=== PATIENT | male | born 1955 | race Caucasian/White ===

== ENCOUNTER 2016-10-26 08:14 | Emergency (ER) | payer OTHER ==
[2016-10-26 08:28] VITALS: RESP 16
[2016-10-26] MEDS ORDERED: HYDROmorphONE/DILAUDID 1 MG/ML SYR IVP ONE (08:32)
[2016-10-26] MEDS ORDERED: NS 1,000 ML IV ONE (08:32)
[2016-10-26] MEDS ORDERED: ONDANSETRON 4 MG/2 ML VIAL IVP ONE (08:32)
--- NOTE | 2016-10-26 08:37 | UCPHY ---
H & P Time Seen by Provider: 10/26/16 08:22 Patient Type: Established HPI/ROS: HPI Abdominal pain. 61-year-old male by private vehicle with his . This patient complains of periumbilical and right lower quadrant abdominal pain described as a burning, bloating and cramping sensation onset at 5:00 p.m. yesterday worsening through the night. He has had associated nausea with some nonbilious, nonbloody vomiting. No diarrhea. No bloody or melenic stool. Last meal was yesterday afternoon. No previous abdominal surgical history. He reports that he has had this pain 3 times over the last 3-4 months. He reports that it has resolved spontaneously each time. He was seen at the emergency department at another hospital for this pain about 1 month ago. He had an ultrasound done at that time which he reports was inconclusive. He has not had CT imaging. ROS: Constitutional: No fever, no chills. No weakness. Eyes: No discharge. No changes in vision. ENT: No sore throat. No nasal congestion or rhinorrhea. Respiratory: No cough. No shortness of breath. Cardiac: No chest pain, no palpitations. Gastrointestinal: As above. Genitourinary: No hematuria. No dysuria or increased frequency with urination. Musculoskeletal: No back pain. No neck pain. No myalgias or arthralgias. Skin: No rashes. Neurological: No headache. No focal weakness or altered sensation. Past medical history: Kidney stones. As above. No medication allergies. Social history: Here with his . Physical Exam: General Appearance: Alert, uncomfortable. This patient is responding to questions appropriately and in full sentences. This patient appears well- hydrated and well-nourished. Eyes: Pupils equal and round no pallor or injection. No lid edema, erythema or injection. Respiratory: There are no retractions, lungs are clear to auscultation with good air movement bilaterally. Cardiovascular: Regular rate and rhythm. No murmur. Gastrointestinal: Abdomen is soft, mildly distended, vague periumbilical and right lower quadrant tenderness on palpation, no masses, bowel sounds normal. No focal tenderness at McBurney's point. No Abarca sign. Neurological: Motor sensory function is grossly intact. Cranial nerves are normal. Gait is normal. Skin: Warm and dry, no rashes. Musculoskeletal: Neck is supple and nontender. Extremities are symmetrical. All joints range without pain or impingement. Psychiatric: No agitation. No depression. Database: EKG: Imaging: CT scan of abdomen and pelvis with IV contrast: In ileitis is seen. There are several loops of ilium with mild thickness of the wall and dilation. No small- bowel obstruction. The appendix is visualized and is normal. No diverticulitis. Diverticula are present. Small amount of free fluid around the liver. There is a 7 mm stone in the bladder. Fatty liver noted. Results discussed with staff radiologist Dr. Rafi Mccullough. Procedures: Emergency department course: IV placed. He was placed on a monitor. He was started on IV normal saline with 1 L to be given over the next hour. He was given 1 mg of IV hydromorphone and 4 mg of IV Zofran. Vital signs have been reviewed and are unremarkable. 9:00 a.m., patient re-evaluated. Pain is well controlled at this time. Patient sent for CT imaging. 9:50 a.m., the patient re-evaluated. Resting comfortably at this time. Pain has resolved completely. Repeat abdominal exam is soft, nontender nondistended. Results of his CT scan and lab work were discussed with him. 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 Need for follow-up through gastroenterology discussed. Plan will be to prescribe him Vicodin, stool softeners and high-dose NSAIDs over the next 3 days with follow-up with Gastroenterology this coming week for further evaluation and management. Patient endorses. Return to emergency department precautions discussed. All of his questions were answered. He was discharged in good condition. Differential Diagnosis: The differential diagnosis on this patient includes but is not limited to appendicitis, epiploic appendagitis, colitis, volvulus/bowel obstruction. This represents a partial list of diagnoses considered. These considerations are based on history, physical exam, past history, reassessment and diagnostic testing. Smoking Status: Never smoked Constitutional: Initial Vital Signs Temperature (C) 36.5 C 10/26/16 08:25 Heart Rate 70 10/26/16 08:25 Respiratory Rate 16 10/26/16 08:25 Blood Pressure 157/93 H 10/26/16 08:25 O2 Sat (%) 96 10/26/16 08:25 O2 Delivery Mode Room Air O2 (L/minute) 2 Allergies/Adverse Reactions: No Known Allergies Allergy (Unverified 10/26/16 08:28) Home Medications: Medication Instructions Recorded Compound Rinse For Canker Sores 10/26/16 Docusate Sodium [Colace 100 MG (*)] 100 mg PO TID #20 cap 10/26/16 Hydrocodone/APAP 5/325 [[place] 1 - 2 tab PO Q4-6PRN PRN #20 tab 10/26/16 5/325 (*)] Ondansetron Odt [Zofran Odt 4 mg 4 mg PO Q4PRN PRN #10 tab 10/26/16 (*)] Medical Decision Making - Data Points Laboratory Results: Laboratory Results 10/26/16 08:40 10/26/16 08:40 10/26/16 08:40 WBC 12.90 H 10^3/uL (3.80-9.50) RBC 6.02 10^6/uL (4.40-6.38) Hgb 17.6 H g/dL (13.7-17.5) Hct 49.9 % (40.0-51.0) MCV 82.9 fL (81.5-99.8) MCH 29.2 pg (27.9-34.1) MCHC 35.3 g/dL (32.4-36.7) RDW 13.3 % (11.5-15.2) Plt Count 294 10^3/uL (150-400) MPV 9.5 fL (8.7-11.7) Neut % (Auto) 85.1 H % (39.3-74.2) Lymph % (Auto) 7.1 L % (15.0-45.0) [place] % (Auto) 7.2 % (4.5-13.0) Eos % (Auto) 0.1 L % (0.6-7.6) Baso % (Auto) 0.2 L % (0.3-1.7) Nucleat RBC Rel Count 0.0 % (0.0-0.2) Absolute Neuts (auto) 10.98 H 10^3/uL (1.70-6.50) Absolute Lymphs (auto) 0.91 L 10^3/uL (1.00-3.00) Absolute Monos (auto) 0.93 H 10^3/uL (0.30-0.80) Absolute Eos (auto) 0.01 L 10^3/uL (0.03-0.40) Absolute Basos (auto) 0.03 10^3/uL (0.02-0.10) Absolute Nucleated RBC 0.00 10^3/uL (0-0.01) Immature Gran % 0.3 % (0.0-1.1) Immature Gran # 0.04 10^3/uL (0.00-0.10) Sodium 141 mEq/L (134-144) Potassium 4.3 mEq/L (3.5-5.2) Chloride 104 mEq/L (97-110) Carbon Dioxide 24 mEq/l (22-31) Anion Gap 13 mEq/L (8-16) BUN 17 mg/dL (7-23) Creatinine 0.9 mg/dL (0.7-1.3) Estimated GFR > 60 Glucose 130 H mg/dL (70-100) Calcium 9.5 mg/dL (8.5-10.4) Total Bilirubin 1.4 mg/dL (0.1-1.4) Conjugated Bilirubin 0.4 mg/dL (0.0-0.5) Unconjugated Bilirubin 1.0 mg/dL (0.0-1.1) AST 20 IU/L (17-59) ALT 35 IU/L (21-72) Alkaline Phosphatase 76 IU/L (38-126) Total Protein 7.5 g/dL (6.3-8.2) Albumin 4.2 g/dL (3.5-5.0) Lipase 368.0 H IU/L (23-300) Medications Given: Discontinued Medications Hydromorphone HCl (Dilaudid) 0.5 mg IVP EDNOW ONE Stop: 10/26/16 08:33 Last Admin: 10/26/16 08:53 Dose: 0.5 mg Sodium Chloride (Ns) 1,000 mls @ 0 mls/hr IV ONCE ONE PRN Reason: Wide Open Stop: 10/26/16 08:33 Last Admin: 10/26/16 08:56 Dose: 1,000 mls Ondansetron HCl (Zofran) 4 mg IVP EDNOW ONE Stop: 10/26/16 08:33 Last Admin: 10/26/16 08:54 Dose: 4 mg Departure - Departure Disposition: Home, Routine, Self-Care Clinical Impression: Abdominal pain Condition: Good Instructions: Acute Abdominal Pain (ED), Crohn Disease (ED) Additional Instructions: Read and follow provided instructions. Follow-up with Gastroenterology, early next week as discussed for re-evaluation and further management. Call their office Friday morning for appointment time. Explain this is for an emergency department follow-up. Take medication as prescribed. Ibuprofen dosin mg every 6 hours with meals for the next 3 days only. [place]/Percocet dosin-2 every 4-[address] not drive on this medication. Return to the emergency department for worsening pain, vomiting and inability to keep fluids down despite medications, fever, blood in stool or other serious concerns. Referrals: Vimal Sanchez MD [Primary Care Provider] - As per Instructions Jass Majano MD, FACG [Medical Doctor] - As per Instructions Prescriptions: Docusate Sodium [Colace 100 MG (*)] 100 mg PO TID #20 cap Hydrocodone/APAP 5/325 [[place] 5/325 (*)] 1 - 2 tab PO Q4-6PRN PRN #20 tab PRN Reason: Pain, Moderate Ondansetron Odt [Zofran Odt 4 mg (*)] 4 mg PO Q4PRN PRN #10 tab PRN Reason: For Nausea & Vomiting - PQRS PQRS Measurement: 134: Depression screening and followup, PRIME MD-PHQ2 (12 years and older) Over the last 2 weeks, how often have you been bothered by any of the following problems? 1. Feeling down, depressed, or hopeless? 2. Little interest or pleasure in doing things? Answered no to both questions. 130: Documentation of medications. Reviewed all patient medications, doses, route and frequency. 226: Do you smoke? No. 47: 65 and older: Advanced care planning. Patient designates surrogate decision maker as spouse. 51: 18 years old and older with diagnosis of COPD, spirometry performance. NA 52: 18 years old and older with COPD and symptoms of COPD or FEV1<60% predicted prescribed a B Agonist. NA
[2016-10-26 08:50] LABS: % IMMATURE GRANULYOCYTES 0.3 % (0.0-1.1); ABSOLUTE IMMATURE GRANULOCYTES 0.04 10^3/uL (0.00-0.10); ADD DIFF? NO; ADD MORPH? NO; ADD SCAN? NO; ATYPICAL LYMPHOCYTE FLAG 0 (0-99); FRAGMENT RBC FLAG 0 (0-99); HEMATOCRIT 49.9 % (40.0-51.0); HEMOGLOBIN 17.6 g/dL (13.7-17.5); LEFT SHIFT FLG 0 (0-99); LIPEMIA HEMOLYSIS FLAG 90 (0-99); MEAN CELL HEMOGLOBIN 29.2 pg (27.9-34.1); MEAN CELL HEMOGLOBIN CONCENTR. 35.3 g/dL (32.4-36.7); MEAN CELL VOLUME 82.9 fL (81.5-99.8); MEAN PLATELET VOLUME 9.5 fL (8.7-11.7); PLATELET CLUMPS FLAG 20 (0-99); PLATELET COUNT 294 10^3/uL (150-400); RED BLOOD CELL COUNT 6.02 10^6/uL (4.40-6.38); RED CELL DISTRIBUTION WIDTH 13.3 % (11.5-15.2)
[2016-10-26] MEDS ORDERED: IOPAMIDOL (ISOVUE-300) 50 ML VIAL IV ONE ×2 (08:57)
[2016-10-26 09:05] LABS: ALANINE AMINOTRANSFERASE 35 IU/L (21-72); ALBUMIN 4.2 g/dL (3.5-5.0); ALKALINE PHOSPHATASE 76 IU/L (38-126); ANION GAP 13 mEq/L (8-16); ASPARTATE AMINOTRANSFERASE 20 IU/L (17-59); BILIRUBIN,TOTAL 1.4 mg/dL (0.1-1.4); BILIRUBIN-CONJUGATED 0.4 mg/dL (0.0-0.5); CALCIUM 9.5 mg/dL (8.5-10.4); CARBON DIOXIDE 24 mEq/l (22-31); CHLORIDE 104 mEq/L (97-110); CREATININE 0.9 mg/dL (0.7-1.3); GLOMERULAR FILTRATION RATE > 60; GLUCOSE 130 mg/dL (70-100); POTASSIUM 4.3 mEq/L (3.5-5.2); SODIUM 141 mEq/L (134-144); TOTAL PROTEIN 7.5 g/dL (6.3-8.2)
--- NOTE | 2016-10-26 10:11 | CT ---
CT Scan of the Abdomen and Pelvis (With Contrast) October 26, 2016 Indication: Abdominal pain. Technique: No oral or rectal contrast. 90 mL of Isovue 300 were given intravenously by machine power injection. Multidetector helical CT imaging was performed from the diaphragm to the symphysis pubis . Dose reduction techniques were utilized. Comparison: Abdominal radiograph dated January 01, 2010. Findings: The ileocecal valve has circumferential wall enhancement and thickening with associated na rrowing on images 218 through 223 of series 3 and images 32 through 36 of the coronal reconstruction. The terminal ileum upstream from the ileocecal valve is minimally dilated with associated increased mucosal enhancement, mesenteric edema, and trace fluid which extends down into the low pelvis. The ce cum, ascending colon, and transverse colon are mildly distended with fluid. The descending and sigmoi d colon is decompressed and contains numerous noninflamed diverticula. The appendix is normal. No pne umoperitoneum, abscess, or fistula tract. The liver has generalized decreased attenuation characteristic of hepatic steatosis. No focal liver l esion. Trace fluid is present along the dome of the liver off to the right. The spleen is normal sized. The pancreas, gallbladder, adrenal glands, and kidneys are normal with ex ception of a benign 4 cm right renal cyst. No nephrolithiasis or hydroureteronephrosis. A 7 mm calcul us resides dependently in the bladder lumen just medial to the right trigone. The urinary bladder has mild circumferential wall thickening and the minimally enlarged prostate gland bulges into the base of the bladder. The lung bases are clear. A benign bone island in the left ilium is unchanged. Impression: 1. Acute ileitis with associate regional inflammation and free fluid in the right lower quadrant. Dif ferential diagnosis includes Crohn disease and infectious etiologies such as Yersinia and Campylobact er. 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 2. No abscess or evidence of perforation. 3. Normal appendix. 4. Hepatic steatosis. 5. 7 mm calculus in bladder lumen. Comment: Results were called to Dr. Mitch Parikh.
[2016-10-26 10:23] VITALS: BP 125/85; PULSE 91; TEMP 98.2; O2SAT 94
[2016-10-26 10:25] LABS: COLOR YELLOW; LEUKOCYTE ESTERASE,URINE TRACE (NEGATIVE); NITRITE,URINE NEGATIVE (NEGATIVE)
[2016-10-26 10:37] LABS: BACTERIA 1+ /hpf (NONE SEEN); MUCUS 3+ /lpf (NONE-1+); RBC,URINE NONE SEEN /hpf (0-3)
== END 2016-10-26 10:21 | disposition home or self-care (01) ==
LOC: CED 08:14
DX: K52.9 Noninfective gastroenteritis and colitis, unspecified (principal); K76.0 Fatty (change of) liver, not elsewhere classified; N21.0 Calculus in bladder; Z87.442 Personal history of urinary calculi
CPT/HCPCS: 74177-PO; 80048-PO; 80076-PO; 81003-PO; 81015-PO; 83690-PO; 85025-PO; 96361-PO; 96374-PO; 96375-PO; 99215-PO; G0463-PO; J1170; J2405; Q9967